=== PATIENT | male | born 2005 | race Two or more races ===

== ENCOUNTER 2024-08-14 21:56 | Emergency (ER) | payer MEDICAID, OTHER ==
[~2024-08-14] VITALS: Ht 175.3 cm; Wt 68.0 kg
[2024-08-14 23:02] VITALS: TEMP 98
[2024-08-14] MEDS ORDERED: ONDANSETRON HCL/PF 4 MG/2 ML VIAL ONE (23:07)
[2024-08-14] MEDS ORDERED: KETOROLAC TROMETHAMINE INJ 30 MG/ML VIAL ONE (23:07)
[2024-08-14] MEDS: IV NS 0.9% 500 ML BAG IV ONE (23:20)
[2024-08-14] MEDS: KETOROLAC TROMETHAMINE 15 MG/ML VIAL IV ONE (23:20)
[2024-08-14] MEDS: ONDANSETRON HCL/PF 4 MG/2 ML VIAL IVP ONE (23:21)
[2024-08-14 23:29] LABS: BASOPHILS % (AUTO) 0.5 % (0.0-2.0); EOSINOPHILS # (AUTO) 0.3 K/uL (0.0-0.7); HEMATOCRIT 43 % (39-51); HEMOGLOBIN 14.7 g/dL (13.5-17.5); LYMPHOCYTES # (AUTO) 1.8 K/uL (0.8-4.8); LYMPHOCYTES % (AUTO) 19.1 % (20.0-44.0); MEAN CORPUSCULAR HEMOGLOBIN 32 PG (26.0-33.0); MEAN CORPUSCULAR HGB CONC 35 g/dl (31.0-36.0); MEAN CORPUSCULAR VOLUME 92 fL (80-96); MONOCYTES # (AUTO) 0.9 K/uL (0.1-1.30); MONOCYTES % (AUTO) 9.4 % (2.0-12.0); NEUTROPHILS # (AUTO) 6.4 K/uL (1.8-8.9); PLATELET COUNT (AUTO) 229 K/uL (150-450); RED BLOOD CELL COUNT(AUTO) 4.63 MIL/uL (4.5-6.0); RED CELL DISTRIBUTION WIDTH 13.7 % (11.5-15.0); WHITE BLOOD COUNT (AUTO) 9.4 K/uL (4.3-11.0)
[2024-08-14 23:31] LABS: APPEARANCE,URINE CLEAR (CLEAR); BILIRUBIN,URINE NEGATIVE (NEGATIVE); BLOOD, URINE NEGATIVE Ery/uL (NEGATIVE); COLOR,URINE YELLOW (YELLOW); KETONES,URINE NEGATIVE (NEGATIVE); LEUKOCYTE ESTERASE ,URINE NEGATIVE (NEGATIVE); NITRITE, URINE NEGATIVE (NEGATIVE); PROTEIN,URINE NEGATIVE (NEGATIVE); UGLUCOSE NEGATIVE (NEGATIVE); UROBILINOGEN,URINE 0.2 EU/dL (0.2)
[2024-08-14 23:36] LABS: CALCIUM, SERUM 8.9 mg/dL (8.5-10.1); CREATININE 0.9 mg/dL (0.6-1.3); POTASSIUM 3.7 mmol/L (3.5-5.1)
[2024-08-14 23:41] LABS: ALBUMIN 4.4 g/dL (3.4-5.0); BILIRUBIN,DIRECT 0.1 mg/dL (0.0-0.2); BILIRUBIN,TOTAL 0.3 mg/dL (0.2-1.0)
[2024-08-14 23:43] LABS: INR 1.06 (0.91-1.10); PARTIAL THROMBOPLASTIN TIME 29.6 SEC (24.3-34.3); PROTHROMBIN TIME 11.2 SECS (9.2-11.1)
[2024-08-15 00:40] VITALS: BP 127/77; O2SAT 99
== END 2024-08-15 00:41 | disposition home or self-care (01) ==
LOC: ER 22:09
DX: R10.11 Right upper quadrant pain (principal)
CPT/HCPCS: 99285; 96374; 76705; 96375; 85025; 80048; 83690; 80076; 81003; 36415; 85730; J1885; J2405; J7040

== ENCOUNTER 2025-05-07 03:32 | Emergency (ER) | payer MEDICAID ==
[~2025-05-07] VITALS: Ht 172.7 cm; Wt 64.4 kg
[2025-05-07] MEDS ORDERED: dexaMETHasone SOD PHOSPHATE 1 ML ONE (03:53)
[2025-05-07] MEDS ORDERED: FAMOTIDINE (20 MG) 20 MG TABLET ONE (03:54)
[2025-05-07] MEDS: dexaMETHasone SOD PHOSPHATE 4 MG/ML VIAL IM ONE (04:01)
[2025-05-07] MEDS: FAMOTIDINE (20 MG) 20 MG TABLET PO ONE (04:02)
[2025-05-07 05:15] VITALS: BP 109/63; TEMP 98.2; O2SAT 97
== END 2025-05-07 05:34 | disposition home or self-care (01) ==
LOC: ER 03:40
DX: L50.9 Urticaria, unspecified (principal); R51.9 Headache, unspecified; Z88.0 Allergy status to penicillin; Z88.6 Allergy status to analgesic agent
CPT/HCPCS: 99284; 96372; J1100; J1200